=== PATIENT | male | born 1935 | race Caucasian/White ===

== ENCOUNTER → 2016-02-17 | Day surgery (SDC) | payer MEDICARE, OTHER ==
[~2016-02-17] MED LIST: GENTAMICIN SULFATE 80 MG/2 ML VIAL ONE; LACTATED RINGER'S 1000 ML INJ 1,000 ML ONE; NS 100 ML (PAB BAG) 100 ML IV ONE; ONDANSETRON HCL 4 MG/2 ML VIAL IV PUSH ONE; PROPOFOL 200 MG/20 ML AMP IV ONE
--- NOTE | 2016-02-17 14:13 | TN ---
cc: CLARISSE ORTEGA M.D. DATE OF SURGERY: 02/17/2016 PREOPERATIVE DIAGNOSIS 1. Bladder calculus (ICD-10 code N21.0). 2. Prostate cancer (ICD-10 code C61). PROCEDURE Cystolitholapaxy (CPT code 86549). INDICATIONS Mr. Salgado is an 80-year-old gentleman who was recently had an episode of gross hematuria, underwent evaluation and was found to have an approximately 2 cm bladder stone. He presents now for definitive treatment. FINDINGS Normal urethra. The prostatic urethra shows bilateral hyperplasia, moderate obstruction with a markedly elevated bladder neck. The trigone shows ureteral orifices normal size, shape and position, effluxing clear urine. There is a moderate sized bladder calculus in the dependent portion of the bladder with some smaller stones adjacent to it. There is moderate trabeculation with some small diverticula and cellules. Otherwise no breonna tumors or suspicious mucosa. DETAILS OF PROCEDURE The procedure as well as risks and benefits were explained to the patient. Informed consent was obtained. The patient was taken to the major operative theatre where he was placed in the supine position. The patient was identified as well as the operative site. A universal timeout was performed in the standard fashion. At this time general anesthetic and prophylactic intravenous antibiotics consisting of gentamicin 80 mg was administered. After adequate anesthetic he was placed in the low dorsal lithotomy position, prepped and draped in the usual sterile fashion with some mild Trendelenburg. A 22.5 [place] cystoscope with a 30 degree lens was inserted in the urethra and bladder. The 30 degree lens was exchanged for a 70 degree lens. The entire bladder was systematically surveyed with the above findings and photo documentation was obtained. At this time using a 9 [place]ese electrohydraulic lithotripsy probe and the electrohydraulic lithotripsy machine set at 80 hard, continuous electrohydraulic lithotripsy of the bladder stone was performed using a 9 [place] probe. The stone was obliterated into multiple small pieces and an Ellik evacuator was used to remove all of the pieces. After confirming no incidental damage to the bladder or residual pieces, the bladder was decompressed, the cystoscope removed. The patient tolerated the procedure well and emerged from anesthetic without difficulty. The patient was transferred to the recovery room in stable condition to be discharged home when criteria is met. There were no obvious complications. MD LILLIAN Prasad /1:54 PM /2:04 PM
== END | disposition home or self-care (01) ==
LOC: ESDC 11:16
PROVIDERS: ATTEND Urology
DX: N21.0 Calculus in bladder (principal); C61 Malignant neoplasm of prostate
CPT/HCPCS: 00910; 52317; J1580; J2405; J3010; J7120